=== PATIENT | female | born 1945 | race Caucasian/White ===

== ENCOUNTER 2017-12-05 09:39 | Emergency (ER) | payer MEDICARE, BC ==
[~2017-12-05] VITALS: Ht 165.1 cm; Wt 100.0 kg
[~2017-12-05 09:39] MED LIST: AMLO2.5T PO; ASCO100072 PO; ASPI-496 PO; ATOR10TA9 PO; CALC625T23 PO; MULT-658 PO; OMEP-110 PO
[2017-12-05 10:18] LABS: BASOPHILS # (AUTO) 0.03 x10^3/uL (0-0.1); BASOPHILS % (AUTO) 1 % (0-1); EOSINOPHILS # (AUTO) 0.21 x10^3/uL (0-0.4); EOSINOPHILS % (AUTO) 4 % (1-7); LYMPHOCYTES # (AUTO) 1.49 x10^3/uL (1-3.4); LYMPHOCYTES % (AUTO) 29 % (22-44); MD NO; MEAN CORPUSCULAR HEMOGLOBIN 30.5 pg (27.0-34.8); MEAN CORPUSCULAR VOLUME 92.3 fL (80-100); MEAN PLATELET VOLUME 7.9 fL (7.4-10.4); MONOCYTES # (AUTO) 0.53 x10^3/uL (0.2-0.8); MONOCYTES % (AUTO) 10 % (2-9); NEUTROPHILS # (AUTO) 2.92 x10^3/uL (1.8-6.8); NEUTROPHILS % (AUTO) 56 % (42-75); PLATELET COUNT 236 x10^3/uL (130-400); RED BLOOD COUNT 4.57 x10^6/uL (3.82-5.3); RED CELL DISTRIBUTION WIDTH 14.1 % (9.6-15.2)
[2017-12-05 10:27] LABS: ANION GAP 4 mmol/L (5-15); CALCIUM 8.6 mg/dL (8.5-10.1); CHLORIDE 110 mmol/L (98-107)
[2017-12-05] MEDS ORDERED: ASPIRIN 81 MG TABLET CHEW PO ONE (10:30)
[2017-12-05 10:31] LABS: TROPONIN I < 0.015 ng/mL (0.000-0.045)
[2017-12-05 11:30] VITALS: BP 179/97
== END 2017-12-05 11:58 | disposition home or self-care (01) ==
LOC: ED 11:15
DX: M25.512 Pain in left shoulder (principal); M79.1 Myalgia; I10 Essential (primary) hypertension
CPT/HCPCS: 36415; 71046; 80048; 82040; 83880; 84484; 85025; 93005; 99285

== ENCOUNTER → 2018-08-21 | Outpatient (CLI) | payer MEDICARE, BC ==
[~2018-08-21] MED LIST changes: -AMLO2.5T PO; +AMLO2.5T3 PO
== END | disposition home or self-care (01) ==
LOC: CFH 13:18
PROVIDERS: ATTEND Family Medicine
DX: Z12.31 Encounter for screening mammogram for malignant neoplasm of breast (principal)
CPT/HCPCS: 77067

== ENCOUNTER 2018-10-26 13:09 | Outpatient (CLI) | payer MEDICARE, BC ==
[~2018-10-26 13:09] MED LIST changes: -AMLO2.5T3 PO; +AMLO2.5T5 PO
[2018-10-26 15:56] LABS: MICROSCOPIC AUTO
[2018-10-26 15:59] LABS: CULTURE INDICATED? ORDERED BY PHYSICIAN
== END 2018-10-26 23:59 | disposition home or self-care (01) ==
LOC: CFH 13:09
PROVIDERS: ATTEND Family Medicine
DX: M85.88 Other specified disorders of bone density and structure, other site (principal); M17.0 Bilateral primary osteoarthritis of knee; N95.9 Unspecified menopausal and perimenopausal disorder; N39.41 Urge incontinence
CPT/HCPCS: 77080; 81001; 87086

== ENCOUNTER → 2019-11-19 | Outpatient (CLI) | payer MEDICARE, BC | END | disposition home or self-care (01) | LOC: CFH 14:56 | PROVIDERS: ATTEND Family Medicine | DX: Z12.31 Encounter for screening mammogram for malignant neoplasm of breast (principal) | CPT/HCPCS: 77063; 77067 ==

== ENCOUNTER → 2020-02-08 | Outpatient (CLI) | payer MEDICARE, BC ==
[2020-02-08 13:00] LABS: BASOPHILS # (AUTO) 0.03 x10^3/uL (0-0.1); BASOPHILS % (AUTO) 1 % (0-1); EOSINOPHILS # (AUTO) 0.23 x10^3/uL (0-0.4); EOSINOPHILS % (AUTO) 5 % (1-7); LYMPHOCYTES % (AUTO) 26 % (22-44); MD NO; MEAN CORPUSCULAR HEMOGLOBIN 31.6 pg (27.0-34.8); MEAN CORPUSCULAR HGB CONC 33.4 g/dL (32.4-35.8); MEAN CORPUSCULAR VOLUME 94.6 fL (80-100); MEAN PLATELET VOLUME 8.6 fL (7.4-10.4); MONOCYTES # (AUTO) 0.39 x10^3/uL (0.2-0.8); MONOCYTES % (AUTO) 8 % (2-9); NEUTROPHILS % (AUTO) 60 % (42-75); PLATELET COUNT 206 x10^3/uL (130-400); RED BLOOD COUNT 4.38 x10^6/uL (3.82-5.3); RED CELL DISTRIBUTION WIDTH 14.3 % (9.6-15.2)
[2020-02-08 13:08] LABS: MICROSCOPIC INDICATED
[2020-02-08 13:16] LABS: CHLORIDE 113 mmol/L (98-107)
[2020-02-08 13:29] LABS: ALANINE AMINOTRANSFERASE 22 U/L (12-78); ALBUMIN 3.7 g/dL (3.4-5.0); ALKALINE PHOSPHATASE 71 U/L (45-117); ANION GAP 7 mmol/L (5-15); BILIRUBIN,TOTAL 0.8 mg/dL (0.2-1.0); CALCIUM 8.9 mg/dL (8.5-10.1); CHOL/HDL RATIO 2.4; CHOLESTEROL, TOTAL 187 mg/dL (140-239); HDL CHOL % 41 % (28-40); HDL CHOLESTEROL (DIRECT) 77 mg/dL (40-60); LDL CHOLESTEROL,CALCULATED 97 mg/dL (54-169); LDL/HDL RATIO 1.3 (0.5-3.0); TOTAL PROTEIN 7.1 g/dL (6.4-8.2); TRIGLYCERIDES 67 mg/dL (50-200); VLDL CHOLESTEROL 13 mg/dL (0-25)
== END | disposition home or self-care (01) ==
LOC: CFH 08:40
PROVIDERS: ATTEND Family Medicine
DX: E78.5 Hyperlipidemia, unspecified (principal); I10 Essential (primary) hypertension; R73.9 Hyperglycemia, unspecified
CPT/HCPCS: 36415; 80053; 80061; 81001; 82043; 83036; 85025

== ENCOUNTER 2020-12-08 14:58 | Outpatient (CLI) | payer MEDICARE, BC | END 2020-12-08 23:59 | disposition home or self-care (01) | LOC: CFH 14:58 | PROVIDERS: ATTEND Family Medicine | DX: Z12.31 Encounter for screening mammogram for malignant neoplasm of breast (principal) | CPT/HCPCS: 77063; 77067 ==

== ENCOUNTER 2021-05-31 09:26 | Outpatient (CLI) | payer MEDICARE, BC | END 2021-05-31 23:59 | disposition home or self-care (01) | LOC: LAB 09:26 | PROVIDERS: ATTEND Family Medicine | DX: I10 Essential (primary) hypertension (principal); E78.2 Mixed hyperlipidemia; R63.5 Abnormal weight gain ==